=== PATIENT | female | born 1980 | race Caucasian/White ===

== ENCOUNTER 2016-07-10 05:49 | Day surgery (SDC) | payer OTHER ==
[2016-07-10] VITALS (11 sets, daily range): BP systolic 131–157; BP diastolic 75–100; PULSE 88–122; RESP 8–18; O2SAT 97–100
[~2016-07-10] VITALS: Ht 167.6 cm; Wt 100.8 kg
[~2016-07-10 05:49] MED LIST: Clindamycin Inj 900 MG in IV Premix 1 EACH IV ONE; GENTAMICIN IV ONE; RIZA10TA23 PO; SODIUM CHLORIDE 0.9% IV ONE
[2016-07-10] MEDS ORDERED: Glycopyrrolate 0.2 mg/mL 5 mL Inj ONE (05:50)
[2016-07-10] MEDS ORDERED: Neostigmine 1 mg/mL 5 mL Inj ONE (05:50)
[2016-07-10] MEDS ORDERED: Succinylcholine Chloride 20 mg/mL 5 mL Inj ONE (05:50)
[2016-07-10] MEDS ORDERED: HYDROmorphone 2 mg/mL Inj ONE (05:50)
[2016-07-10] MEDS ORDERED: Dexamethasone 4 mg/mL Inj ONE (05:50)
[2016-07-10] MEDS ORDERED: Propofol 10,000 mCg/mL 20 mL Inj ONE (05:50)
[2016-07-10] MEDS ORDERED: fentaNYL-PF 50 mCg/mL 2 mL Inj ONE (05:50)
[2016-07-10] MEDS ORDERED: Ondansetron 2 mg/mL 2 mL Inj ONE (05:50)
[2016-07-10] MEDS ORDERED: Rocuronium 10 mg/mL 5 mL Inj ONE (05:50)
[2016-07-10] MEDS ORDERED: Clindamycin 900 mg/50 mL D5W Premix IV ONE (06:22)
[2016-07-10] MEDS: Lactated Ringer's 1,000 ML IV SCH ×2 (07:02→07:29)
--- NOTE | 2016-07-10 07:13 | PCM.HPANE ---
Patient Data Surgeon Admitting Provider: Attending Provider:Al Vance MD Primary Care Physician:Lois Atkinson PA-C Other Provider:Katt Whiteingham Anesthesia Reason for Visit High Grade Intrepith Lesion (Hgsil) Ht/WT & BMI Height (Feet): 5 Height (Inches): 6.00 Weight (Kilograms): 100.800 Body Mass Index 35.00 Allergies Coded Allergies: Potassium Clavulanate (Unverified Allergy, Severe, RASH, 10/10/15) amoxicillin trihydrate (Unverified Allergy, Severe, RASH, 10/10/15) medroxyprogesterone (Verified Adverse Reaction, Severe, EXCESSIVE BLEEDING , 10/10/15) Past Anesthesia History Anesthesia History: Denies:: Abnormal Airway, Anesthesia Reactions, Difficult Intubation, Malignant Hyperthermia Diabetes History Hx Diabetes?: No MRSA MRSA: No Medications Hypertension Medication: No Home Meds Incl Beta Joey: No Reported Medications Rizatriptan ODT (Maxalt ROTOR BALANCER)10 Mg [id number] Mg PO Q2H PRN migraine may repeat q2hr/NTE 30mg/24hr 07/05/16 Discontinued Reported Medications Sumatriptan Succinate (Imitrex)50 Mg [id number] Mg PO PRN 10/10/15 History History of ENT Problems?: Yes HEENT History: Positive for:: Sinus Problem Denies:: Abnormal Airway Difficult Intubation Hx of Heart Problems?: No Cardiovascular History: Positive for:: Irregular Heartbeat (past hx of palpitation, tests wnl) Denies:: Edema Hypertension Hx of Respiratory Problem?: No Respiratory History: Denies:: Asthma COPD Emphysema Oxygen Administration Pneumonia Tuberculosis Use of C-PAP Machine Hx Neurologic Problems?: Yes Neurological History: Positive for:: Headaches Hx of GI Problems?: Yes Gastrointestinal History: Positive for:: Heartburn Denies:: Gall Bladder Disease Liver Disease Hx of Problems?: No Genitourinary History: Denies:: Kidney Stones Urinary Tract Infection Female Hx: Denies:: Currently (S/P TUBAL) Pelvic Inflammatory (HIGH RISK HPV INFECTION) Problems with Breasts? Skin History: Denies:: History Skin Disorders? Pressure Ulcers Hx Musculoskeletal Problems?: No Musculoskeletal History: Denies:: Back Injury Fibromyalgia Joint Replacement Musculoskeletal Trauma Osteoarthritis Systemic Lupus Hx of Psycho/Social Problems?: No Hx Surgeries?: Yes (D&C,BTL,RT THYROID NODULE BX X4, thyroidectomy) Hx Any Other Health Problems?: Yes Other History: Positive for:: Endocrine Disease Hospitalization (CHILDBIRTH) Thyroid Disease Denies:: Cancer History Blood Transfusions: Denies:: Blood Transfusions Hx Diabetes: No Hx Alcohol Use: Yes (OCCAS)Hx Substance Use: No Smoking Status: Former Smoker Have You Smoked inLast 12 mo: No Stop/Bang S-Snoring: Do You Snore Loudly: Yes T-Tired: feel tired, fatigued: Yes O-Obsered: Observed not breath: No P-Blood Pressure: treated: No B- Body Mass Index > 35 kg/m2: Yes A- Age over 50: No N- Neck Large Circumference: No G- Gender Male: No DMITRI Total Score: 3 DMITRI Risk Assessment: Low Risk, <3 Yes Risk Assessment Category Category 1A: Patient has history of documented sleep apnea, and HAS NOT received any narcotic, sedative or anesthesia administration during this stay. Category 1B: Patient has history of documented sleep apnea, and HAS received any narcotic , sedative or anesthesia administration during this stay Category 2: Patient has SUSPECTED Obstructive Sleep Apnea, and HAS received any narcotic , sedative or anesthesia administration during this stay. Category 3: Patient has SUSPECTED Obstructive Sleep Apnea and HAS NOT received narcotic, sedative or anesthesia administration during this stay. Category 4: Outpatient in Procedural Areas with known sleep apnea or who screen positive for High Risk via the STOP/BANG questionnaire. Exam Exam Vital Signs Vital Signs Date Time Temp Pulse Resp B/P Pulse Ox O2 Delivery O2 Flow Rate FiO2 07/10/16 07:03 36.2 107 18 149/91 100 Room Air General Appearance: Alert, Oriented X3, Cooperative, No Acute Distress HEENT/AIRWAY: MP 2 Lungs: Clear to Auscultation, Normal Air Movement Heart: Exam Unremarkable, Regular Rate/Rhythm, No Murmurs/Rubs/Gallops Meds/Labs/Diagnostics Admission Meds Current Medications Lactated Ringer's (Lr) 1,000 ml @ 120 mls/hr Q8H20M IV Last administered on t 07:02; Start 07/10/16 at 05:00; Stop 07/10/16 at 13:19 Plan Impression Patient chart reviewed, patient interviewed and anesthestic plan with risks, benefits, and alternatives discussed, and informed consent obtained. NPO Status: 1830 07/10 ASA Physical Status: ASA2 Mod Systemic Disease Anesthetic Plan: GA Bene/Risks/Altern/Consents: Yes HP Complete Prior to Induction: Yes Mackenzie Sherwood MD Jul 10, 2016 07:13
[2016-07-10] MEDS ORDERED: GENTAMICIN IV ONE (07:30)
[2016-07-10] MEDS ORDERED: Clindamycin Inj 900 MG in IV Premix 1 EACH IV ONE (07:30)
[2016-07-10] MEDS ORDERED: SODIUM CHLORIDE 0.9% IV ONE (07:30)
[2016-07-10 07:37] LABS: BASOPHILS % (AUTO) 0.5 % (0-3)
[2016-07-10] MEDS ORDERED: Bupivacaine-MPF 0.5% W/EPI 30 mL Inj INFILTRATE ONE (08:11)
[2016-07-10 08:18] LABS: EOSINOPHILS % (AUTO) 3.5 % (0-5); Mean Corpuscular Hemoglobin 29.8 pg (27.0-35.0); Mean Corpuscular Volume 88.8 fL (81-100); NEUTROPHILS % (AUTO) 62.4 % (40-74); Platelet Count 295 bil/L (150-400)
[2016-07-10] MEDS ORDERED: Lactated Ringer's 500 ML IV PRN (08:36)
[2016-07-10] MEDS ORDERED: Lactated Ringer's 1,000 ML IV SCH (08:36)
[2016-07-10] MEDS ORDERED: EPHEDrine Sulfate 50 mg/mL Inj IVPUSH PRN (08:40)
[2016-07-10] MEDS ORDERED: Atropine 0.4 mg/mL Inj IVPUSH PRN (08:40)
[2016-07-10] MEDS ORDERED: fentaNYL-PF 50 mCg/mL 2 mL Inj IVPUSH PRN (08:40)
[2016-07-10] MEDS ORDERED: Dexamethasone 4 mg/mL Inj IVPUSH PRN (08:40)
[2016-07-10] MEDS ORDERED: Phenylephrine 10,000 mCg/mL Inj IVPUSH PRN (08:40)
[2016-07-10] MEDS ORDERED: hydrALAZINE 20 mg/mL Inj IVPUSH PRN (08:40)
[2016-07-10] MEDS ORDERED: Labetalol 5 mg/mL 4 mL Inj IV PRN (08:40)
[2016-07-10] MEDS ORDERED: MetoCLOpramide 5 mg/mL 2 mL Inj IVPUSH PRN ×2 (08:40→10:45)
[2016-07-10] MEDS ORDERED: HYDROmorphone 1 mg/mL Inj IVPUSH PRN (10:45)
[2016-07-10] MEDS: Ondansetron 2 mg/mL 2 mL Inj IVPUSH PRN ×2 (10:45→11:58)
[2016-07-10] MEDS ORDERED: Ondansetron 2 mg/mL 2 mL Inj IVPUSH PRN (10:45)
[2016-07-10] MEDS ORDERED: diphenhydrAMINE 25 mg Capsule PO PRN (10:45)
--- NOTE | 2016-07-10 10:48 | PCM.DIMED ---
Discharge Instructions Date of Service Jul 10, 2016 Dates of Hospitalization Diet No restrictions Activity No restrictions Call your provider Fever or Chills, Shortness of breath, Bleeding, Chest pain, Vomitting, Excessive diarrhea Patient Instructions Follow-up with PCP in: 2 weeks Al Vance MD Jul 10, 2016 10:48
--- NOTE | 2016-07-10 11:03 | PCM.ANEP1 ---
Post Anesthesia Phase 1 PACU Phase 1 Assessment Vital Signs Vital Signs Date Time Temp Pulse Resp B/P Pulse Ox O2 Delivery O2 Flow Rate FiO2 07/10/16 10:45 121 14 157/100 100 Room Air 07/10/16 10:40 122 16 132/75 100 Simple Mask 9 07/10/16 10:35 122 15 131/82 97 Simple Mask 9 07/10/16 10:31 36.1 122 13 147/87 97 Simple Mask 9 07/10/16 07:03 36.2 107 18 149/91 100 Room Air Anesthetic Administered: GA Level of Alertness: Awake, talking PADGETT's with Equal Strength: Yes Pain: No Nausea or Vomiting: No Oxygen Delivery: Room Air Lungs: Clear to Auscultation, Normal Air Movement Mackenzie Sherwood MD Jul 10, 2016 11:03
[2016-07-10] MEDS: HYDROmorphone 1 mg/mL Inj IVPUSH PRN (11:14)
--- NOTE | 2016-07-10 12:14 | PCM.ANEP2 ---
Post Anesthesia Evaluation ASA/CMS Post Anesthesia VS in Patient's Normal Range?: Yes Resp Stable; Airway Patent?: Yes CV Function & Hydration Stable: Yes Mental Status Recovered?: Yes Pain control Satisfactory?: Yes N/V Control Satisfactory?: Yes Mackenzie Sherwood MD Jul 10, 2016 12:14
--- NOTE | 2016-07-10 13:06 | OP ---
[address] [address] OPERATIVE REPORT PATIENT: RICCO CORDOVA : 1980 MR#: [id number] ADMIT: 07/10/2016 JOB ID: [id number] CORRECTED REPORT: DATE OF SURGERY: 07/10/2016 PROCEDURE: Total laparoscopic hysterectomy with bilateral salpingectomy. PREOPERATIVE DIAGNOSIS(ES): High grade dysplasia of the cervix, LAURIE III. POSTOPERATIVE DIAGNOSIS(ES): High grade dysplasia of the cervix, LAURIE III. SURGEON: Al Vance MD FIELD CONSULTANT: Pollo Gomez MD ANESTHESIA: General, Mackenzie Sherwood MD ESTIMATED BLOOD LOSS: 20 mL. ESTIMATED URINE OUTPUT: 300 mL. FLUIDS: 1200 mL of lactated Ringer. COMPLICATIONS: None. FINDINGS: Normal appearance of the vagina. The cervix is mildly prolapsing. Normal sized uterus. Transected fallopian tube from prior tubal ligation. Normal appearance of the ovaries. No adhesions. INDICATION FOR THE PROCEDURE: The patient is a 36-year-old, 2, para 2, with a history of bilateral tubal ligation, who was found to have repetitive high-grade squamous intraepithelial lesion of the cervix that was confirmed by the colposcopy that showed LAURIE III dysplasia involving both endo and exocervix. The patient preferred to have a total laparoscopic hysterectomy rather than conization since the childbearing is complete. PROCEDURE: The patient was brought to the operating room, where she underwent general anesthesia without difficulty. The patient received preoperative antibiotics. She was prepped and draped in the usual surgical fashion. Time-out was performed verifying correct patient and correct procedure. A Angel speculum was placed into the vagina. The cervix was visualized and VPR uterine manipulator was placed. The Anderson catheter was placed as well. Attention was directed to the patient's abdomen where a Veress needle was introduced through the umbilicus. CO2 gas was insufflated until the appropriate pneumoperitoneum achieved. A 5 mm vertical subumbilical skin incision was made with a scalpel and a 5 mm trocar was placed. The pelvis was reviewed with the findings mentioned above. Two additional skin incisions were made in the right and left lower quadrant 5 cm medially and 8 cm above the anterior-superior iliac spine on the left and right side. The 5 mm trocars were placed through the incisions. Using the Thunderbeat instrument and a DeBakey grasper for direction of the uterus, the patient's left fallopian tube was through the mesosalpinx, it was followed by transection of the utero-ovarian and round ligaments. Further dissection was provided through the anterior and posterior leaves of the broad ligament on the patient's left side. This allowed skeletonization of the uterine artery on the patient's left side. The uterine artery was coagulated in three different spots and transected in the middle. Good hemostasis was achieved. Further dissection was provided anteriorly and posteriorly. The bladder dissection was done anteriorly creating the bladder flap. Attention was directed to the contralateral side where in a similar fashion using DeBakey grasper, the right fallopian tube was elevated and dissected to the mesosalpinx towards the cornua of the uterus. This was followed by transection of the utero-ovarian and round ligament and dissection of broad ligament through the anterior and posterior leaves. The right uterine artery was reached, skeletonized with caudal motion of the VPR uterine manipulator displacing the ureters laterally. The uterine artery was coagulated and transected. Dissection was provided anteriorly completing the creation of the bladder flap and moving the bladder away from the lower uterine segment. Uterine arteries on both sides were transected and displaced laterally, with the use of the Thunderbeat instrument the stumps of the uterine arteries on both sides were further dissected down and moved away from the cervix. With a 100 beat instrument, posterior dissection along the cap of the VPR uterine manipulator was done the vagina from the cervix along the posterior cul-de-sac. Circumferential dissection was continued on the patient's right and left side and anteriorly until the vaginal cuff was from the cervix. Attention was then directed to the vaginal portion of the procedure. The specimen of the cervix, uterus and bilateral fallopian tubes were removed vaginally and sent to Pathology. The inflated surgical glove was placed into the vagina to maintain good pneumoperitoneum. 2-0 V lock suture was placed through the left trocar incision and using a self-righting needle grasper, the vaginal cuff was closed with a V lock from patient's right to the left side. It was supported to uterosacral ligaments bilaterally. The suture was cut with the laparoscopic scissors and the residual V lock suture needle was removed from the abdomen. The patient had one very small spot of oozing on the anterior left portion of the vaginal cuff that was controlled with application of cautery using standard instrument. The pelvis was irrigated with warm normal saline and good hemostasis was reassured. The abdomen was desufflated from the CO2 gas. Trocar and all the instruments were removed. The trocar skin incisions were reapproximated using 0 Monocryl and hemostatic dressings were applied. The surgical glove was removed from the vagina and cystoscopy was performed using the 30 degree scope. Both ureters were verified to be patent with good visualization of the ureteral jets. The bladder was drained and the cystoscope was removed. The patient was repositioned back into the supine position. She tolerated the procedure well and was transferred to the recovery room in stable condition. ADDITIONAL INFORMATION: Assistance of Dr. Gomez was necessary during the hysterectomy to provide appropriate retraction, tissue exposure, and visualization of anatomic structures. Corrected by ROSEANNA 10/03/16 at 9:26am
--- NOTE | 2016-07-12 16:28 | PATH ---
SURGICAL PATHOLOGY Attending Physician:Al Vance MD CASE STATUS: Signed Out PATIENT NAME: RICCO CORDOVA PID: [id number] : 1980 DATE COLLECTED:07/10/2016 22:52 SPECIMEN: Uterus +/- tubes/ovaries, except neoplastic, prolapse CLINICAL HISTORY: HIGH GRADE DYSPLASIA OF ENDOCERVIX, HGSIL LAURIE-3 1). 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 Specimen: Cervix, uterine corpus, right and left fallopian tubes. Procedure: Hysterectomy. Tumor size: Greatest dimension of invasive carcinoma: 0.1 cm. Tumor site: Left superior quadrant (12 to 3 o'clock). Histologic type: Superficial invasive squamous cell carcinoma (SISSCA). Histologic grade: G2: moderately differentiated. Stromal invasion: Depth: 1 mm. Horizontal extent: 1 mm. Margins: Uninvolved by invasive carcinoma. Distance of invasive carcinoma from closest margin: Greater than 30 mm. Specify margin: Cervix 12 o'clock - 3 o'clock. No HSIL identified at distal margin. Lymphovascular invasion: Not identified. Pathologic staging (pTNM, AJCC 7th Edition): Primary tumor: [id number] Regional lymph nodes: pNX No nodes submitted or found. Additional pathologic findings: High-grade squamous intraepithelial lesion (LAURIE 3/CIS) involving 9 o'clock - 12 o'clock and 12 o'clock - 3 o'clock quadrants. Intramural leiomyomas. Left fallopian tube hemangioma. ICD10: C53.9 NOTE: As part of routine quality control lab tech, this tumor was reviewed by Dr. Kendall Ho who concurs with the diagnosis. GROSS DESCRIPTION: The specimen is received in formalin, labeled with the patient's name, sublabeled as uterus w/bilat fallopian tubes, and consists of a uterus (162 g, 4.7 cm AP, 10.2 cm SI, 6.7 cm ML) with attached fimbriated fallopian tubes (right: length-5.3 cm, diameter-0.5 cm; left: length-4.2 cm, diameter-0.7 cm). The ovaries are absent. The cervix (2.8 cm AP, 3.3 cm ML) has a transverse os and patent endocervical canal. The exocervix contains multiple white solid firm well-circumscribed nodules (0.1 x 0.1-0.1 cm-0.3 x 0.2 x 0.1 cm) within the 12:00 area 0.7 cm from the os. The endometrium (average thickness-0.2 cm) is mesa-pink smooth and flat. The myometrium (thickness-2.2 cm) is mesa and contains several solid firm white whorled well-circumscribed homogenous nodules (0.5 x 0.4 x 0.2 cm-0.7 x 0.6 x 0.5 cm). The serosa is mesa smooth and shiny. The fallopian tubes have santiago-purple smooth shiny serosa and unremarkable santiago-mesa lumens. The cervix is radially sectioned and submitted clockwise from 12:00. Section code: (A-J) cervix, 12:00-3:00, first 4 slices are bisected and submitted SI; (K-T) cervix, 3:00-6:00, each slice bisected and submitted SI; (U-DD) cervix, 6:00-9:00, first 4 slices are bisected and submitted SI; (EE-II) cervix, 9:00-12:00, last slice is bisected and submitted SI; (JJ, KK) anterior endomyometrium;(LL, MM) posterior endomyometrium; (NN)right fallopian tube, serially sectioned, sales representative facility services; (OO) right fimbria, bivalved, entirely submitted; (PP) left fallopian tube, serially sectioned, sales representative facility services; (QQ) left fimbria, bivalved, entirely submitted. Note: Cervix entirely submitted. 07/11/16 MICRO DESCRIPTION: Sections of cervix show squamous carcinoma in situ involving sections from the 12 o'clock - 3 o'clock quadrant and 9 o'clock - 12 o'clock quadrants. The dysplasia extends over approximately 1 cm of the surface and extends into endocervical glands. In addition, one section from the 12 o'clock -3 o'clock quadrant (block 1F) shows a small area of invasion that extends 1 mm in horizontal extent and 1 mm in maximum depth. Other sections of the uterus show intramural leiomyomas. The section of left fallopian tube fimbria shows a hemangioma. ICD-9 CODES: CPT CODES: 47885 Electronically Signed Out Jessica Gonzalez MD [facility] [address], [place] [address] Technical component performed at [facility], [facility] [address], [place], [address]
== END 2016-07-10 23:59 | disposition home or self-care (01) ==
LOC: SAS 05:49
PROVIDERS: ATTEND Legal Medicine
DX: C53.9 Malignant neoplasm of cervix uteri, unspecified (principal); N87.9 Dysplasia of cervix uteri, unspecified; R12 Heartburn; Z87.891 Personal history of nicotine dependence
CPT/HCPCS: 36415; 58571; 85025; J0330; J1100; J1170; J1580; J2175; J2250; J2405; J2710; J2765; J3010; J7120